=== PATIENT | female | born 2000 | race African-American/Black ===

== ENCOUNTER 2021-10-06 21:52 | Emergency (ER) | payer OTHER ==
[~2021-10-06] VITALS: Ht 170.2 cm; Wt 81.0 kg
[2021-10-06 22:42] LABS: HEMATOCRIT 40.3 % (37.0-47.0); HEMOGLOBIN 12.6 g/dl (12.0-16.0); IMMATURE GRANULOCYTES 0.2 % (0.0-5.0); MEAN CELL VOLUME 81.3 fL CALC (80.0-100.0); MEAN CORPUSCULAR HGB 25.4 pG CALC (26.0-32.0); MEAN CORPUSCULAR HGB CONC 31.3 g/dL CAL (32.0-36.0); NEUT# 7.53 thou/uL (2.00-7.15); RED BLOOD COUNT 4.96 mill/uL (4.20-5.60); RED CELL DISTRI WIDTH 15.9 % (11.5-15.5)
[2021-10-06 23:09] LABS: ALBUMIN 4.6 g/dL (3.2-5.0); ALKALINE PHOSPHATASE 87 u/l (38-126); AMYLASE 87 u/l (30-110); ANION GAP 14 (6-22 (CALC)); BILIRUBIN, TOTAL 0.3 mg/dL (0.0-1.4); BUN 8 mg/dL (7-17); BUN/CREATININE RATIO 16 (12-20 (CALC)); CARBON DIOXIDE 25 mmol/l (22-30); CHLORIDE 103 mmol/l (95-108); CREATININE 0.5 mg/dL (0.5-1.0); ETHYL ALCOHOL 0 mg/dl (0-30); GFR > 60 ML/MIN (>=60 (CALC)); GFR FOR AFR.AMER. > 60 ML/MIN (>=60 (CALC)); LIPASE 77 u/l (23-300); POTASSIUM 3.9 mmol/l (3.5-5.1); SGOT/AST 19 u/l (14-36); SODIUM 138 mmol/l (137-146); TOTAL PROTEIN 8.4 g/dL (6.3-8.2)
[2021-10-06 23:15] LABS: URINE BILIRUBIN - DIPSTICK NEGATIVE (NEGATIVE); URINE BLOOD DIPSTICK TRACE-INTACT (NEGATIVE); URINE COLOR YELLOW; URINE GLUCOSE - DIPSTICK NEGATIVE (NEGATIVE); URINE KETONE NEGATIVE (NEGATIVE); URINE LEUK ESTERASE NEGATIVE (NEGATIVE); URINE PH 7.5 (4.5-8.0); URINE PROTEIN - DIPSTICK TRACE mg/dL (NEG-TRACE); URINE SPECIFIC GRAVITY 1.015; URINE UROBILINOGEN - DIPSTICK 0.2 E.U./dL (0.2)
[2021-10-06 23:18] LABS: URINE NITRITE - DIPSTICK NEGATIVE (Negative)
[2021-10-07 00:03] VITALS: BP 127/102
[2021-10-07] MEDS ORDERED: ULTRAM50 MG PO (00:08)
[2021-10-07] MEDS ORDERED: PROTONIX40 MG PO (00:08)
[2021-10-07] MEDS ORDERED: PHENERGAN25 MG RE (00:08)
== END 2021-10-07 00:24 | disposition home or self-care (01) ==
LOC: ED 21:52
DX: R10.13 Epigastric pain (principal); R11.2 Nausea with vomiting, unspecified; N60.01 Solitary cyst of right breast
CPT/HCPCS: Q9967; S0164

== ENCOUNTER 2021-10-24 03:02 | Emergency (ER) | payer OTHER ==
[2021-10-24] VITALS (8 sets, daily range): BP systolic 106–129; BP diastolic 74–91
[~2021-10-24] VITALS: Ht 170.2 cm; Wt 77.0 kg
[~2021-10-24 03:02] MED LIST: PHENERGAN25 MG RE; PROTONIX40 MG PO; ULTRAM50 MG PO
[2021-10-24 03:32] LABS: HEMATOCRIT 41.5 % (37.0-47.0); HEMOGLOBIN 12.9 g/dl (12.0-16.0); IMMATURE GRANULOCYTES 0.2 % (0.0-5.0); MEAN CELL VOLUME 81.1 fL CALC (80.0-100.0); MEAN CORPUSCULAR HGB 25.2 pG CALC (26.0-32.0); MEAN CORPUSCULAR HGB CONC 31.1 g/dL CAL (32.0-36.0); NEUT# 3.66 thou/uL (2.00-7.15); RED BLOOD COUNT 5.12 mill/uL (4.20-5.60); RED CELL DISTRI WIDTH 16.3 % (11.5-15.5)
[2021-10-24 03:37] LABS: URINE BILIRUBIN - DIPSTICK NEGATIVE (NEGATIVE); URINE BLOOD DIPSTICK NEGATIVE (NEGATIVE); URINE COLOR YELLOW; URINE GLUCOSE - DIPSTICK NEGATIVE (NEGATIVE); URINE KETONE NEGATIVE (NEGATIVE); URINE LEUK ESTERASE NEGATIVE (NEGATIVE); URINE PH 7.5 (4.5-8.0); URINE PROTEIN - DIPSTICK NEGATIVE (NEG-TRACE); URINE UROBILINOGEN - DIPSTICK 0.2 E.U./dL (0.2)
[2021-10-24 03:38] LABS: URINE NITRITE - DIPSTICK NEGATIVE (Negative)
[2021-10-24 03:51] LABS: ALBUMIN 4.7 g/dL (3.2-5.0); ALKALINE PHOSPHATASE 75 u/l (38-126); AMYLASE 113 u/l (30-110); BUN 7 mg/dL (7-17); BUN/CREATININE RATIO 16 (12-20 (CALC)); CARBON DIOXIDE 27 mmol/l (22-30); CHLORIDE 104 mmol/l (95-108); CREATININE 0.5 mg/dL (0.5-1.0); GFR > 60 ML/MIN (>=60 (CALC)); GFR FOR AFR.AMER. > 60 ML/MIN (>=60 (CALC)); LIPASE 226 u/l (23-300); SODIUM 137 mmol/l (137-146); TOTAL PROTEIN 8.5 g/dL (6.3-8.2)
[2021-10-24 03:53] LABS: ANION GAP 11 (6-22 (CALC)); BILIRUBIN, TOTAL 1.2 mg/dL (0.0-1.4); POTASSIUM 4.9 mmol/l (3.5-5.1); SGOT/AST 34 u/l (14-36)
[2021-10-24] MEDS ORDERED: ULTRAM50 M1 PO (06:13)
[2021-10-24] MEDS ORDERED: PREVACID30 M3 PO (06:13)
== END 2021-10-24 06:23 | disposition home or self-care (01) ==
LOC: ED 03:02
PROVIDERS: Emergency Medicine
DX: K29.70 Gastritis, unspecified, without bleeding (principal); N60.01 Solitary cyst of right breast
CPT/HCPCS: Q9967; S0164

== ENCOUNTER 2022-08-31 20:13 | Emergency (ER) | payer OTHER ==
[~2022-08-31] VITALS: Ht 170.2 cm; Wt 77.0 kg
[~2022-08-31 20:13] MED LIST changes: +PREVACID30 M3 PO; +ULTRAM50 M1 PO
[2022-08-31 21:18] VITALS: BP 108/69
== END 2022-08-31 21:22 | disposition home or self-care (01) ==
LOC: ED 20:13
DX: B34.9 Viral infection, unspecified (principal); Z20.822 Contact with and (suspected) exposure to COVID-19